=== PATIENT | male | born 1975 | race Caucasian/White ===

== ENCOUNTER 2022-05-09 11:05 | Outpatient (NON) | payer OTHER, SELFPAY ==
[2022-05-09 11:39] LABS: Basophils Absolute Auto 0.04 K/mm3 (0.00-0.10); Basophils Percent Auto 0.7 % (0.0-1.0); Eosinophils Absolute Auto 0.41 K/mm3 (0.02-0.50); Eosinophils Percent Auto 6.9 % (1.0-6.0); Hematocrit 40.3 % (40.0-54.0); Hemoglobin 13.5 g/dL (14.0-18.0); Immature Granulocyte Absolute 0.03 K/mm3 (0.00-0.00); Immature Granulocyte Percent A 0.5 % (0.0-0.0); Lymphocytes Absolute Auto 1.51 K/mm3 (1.10-4.50); Lymphocytes Percent Auto 25.3 % (18.0-42.0); Mean Corpuscular HGB Conc 33.5 g/dL (32.0-36.0); Mean Corpuscular Hemoglobin 28.5 pg (27.0-31.0); Mean Corpuscular Volume 85.2 fL (78.0-102.0); Mean Platelet Volume 11.3 fl (8.7-11.0); Monocytes Absolute Auto 0.57 K/mm3 (0.10-0.90); Monocytes Percent Auto 9.5 % (2.0-11.0); Neutrophils Absolute Auto 3.4 K/mm3 (1.7-7.2); Neutrophils Percent Auto 57.1 % (50.0-70.0); Platelet Count Result 276 K/mm3 (150-420); Red Blood Count 4.73 M/mm3 (4.70-6.10); Red Cell Distribution Width 13.6 % (11.6-14.4)
[2022-05-09 12:09] LABS: Hemoglobin A1C 7.3 % (<5.7)
[2022-05-09 12:17] LABS: Albumin Level 3.4 g/dL (3.4-5.0); Alkaline Phosphatase 167 U/L (46-116); Anion Gap 14 mmol/L (8-16); Bilirubin,Total 0.4 mg/dL (0.00-1.00); Blood Urea Nitrogen 14 mg/dL (7-18); Calcium 8.1 mg/dL (8.5-10.1); Carbon Dioxide 22 mmol/L (21-32); Chloride 103 mmol/L (98-108); Estimated Glomerular Filt Rate > 60; Glucose 252 mg/dL (70-99); Osmolality Calculated 297 mOsm/kg (285-295); Sodium 139 mmol/L (136-145)
[2022-05-09 13:02] LABS: Alanine Aminotransferase 33 U/L (16-63); Aspartate Amino Transferase 45 U/L (15-37); Total Protein > 12.0 g/dL (6.4-8.2)
[2022-05-09 13:03] LABS: Potassium 4.8 mmol/L (3.5-5.1)
== END 2022-05-09 11:06 | disposition home or self-care (01) ==
LOC: CHSLAB 11:16
DX: E11.9 Type 2 diabetes mellitus without complications (principal); Z79.01 Long term (current) use of anticoagulants; Z86.711 Personal history of pulmonary embolism
CPT/HCPCS: 80053; 83036; 85025